=== PATIENT | male | born 1990 | race African-American/Black ===

== ENCOUNTER 2023-12-22 00:33 | Observation (INO) | payer SELFPAY ==
[2023-12-22] VITALS (58 sets, daily range): BP systolic 121–180; BP diastolic 48–127; PULSE 75–101; RESP 12–24; TEMP 36.6–36.8; O2SAT 97–100
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
[2023-12-22 01:02] LABS: Abs Immature Grans 0.04 10^3/uL (0.0-0.06); Absolute Basophil Count 0.03 10^3/uL (0.0-0.2); Absolute Eosinophil Count 0.02 10^3/uL (0.0-0.7); Absolute Lymphocyte Count 2.12 10^3/uL (1.2-3.4); Absolute Monocyte Count 0.58 10^3/uL (0.1-0.8); Absolute Neutrophil Count 6.14 10^3/uL (1.2-6.7); Basophils % 0.3 %; Eosinophils % 0.2 %; HCT 44.2 % (40.0-50.0); HGB 14.4 g/dL (13.5-17.5); Immature Grans % 0.4 %; Lymphocytes % 23.7 %; MCH 28.2 pg (27.0-33.0); MCHC 32.6 % (32.0-36.0); MCV 87 fL (80-95); MPV 9.4 fL (8.0-11.0); Monocytes % 6.5 %; Neutrophils % 68.9 %; Platelet Count 212 10^3/uL (130-400); RDW 12.5 % (11.8-14.1); RDW-SD 39.3 fL; WBC 8.93 10^3/uL (4.4-10.8)
[2023-12-22] MEDS: Normal Saline - Diluent 50 ML VIAL IJ (01:02)
[2023-12-22] MEDS: Omnipaque 350 MG/ML 100 ML BTL IJ (01:02)
[2023-12-22 01:21] LABS: ALT 43 U/L (16-63); AST 30 U/L (15-37); Albumin 3.5 g/dL (3.4-5.0); Alkaline Phosphatase 83 U/L (46-116); Amylase 55 U/L (25-115); Anion Gap 8.9 mmol/L (3-11); BUN 5 mg/dL (7-18); Bilirubin, Total 0.43 mg/dL (0.2-1.0); CO2 26.1 mmol/L (21.0-32.0); CREATININE 1.1 mg/dL (0.70-1.30); Calcium 8.4 mg/dL (8.5-10.1); Chloride 103 mmol/L (98-107); Estimated GFR 92.04 (mL/min/1.73m2); Glucose 168 mg/dL (74-106); Lipase 44 U/L (16-77); Magnesium 1.8 mg/dL (1.8-2.4); Potassium 3.2 mmol/L (3.5-5.1); Sodium 138 mmol/L (136-145); Total Protein 8.5 g/dL (6.4-8.2); Troponin I < 50 ng/L (< or =60)
[2023-12-22 01:33] LABS: ETHANOL BLOOD < 3.0 mg/dL (<10)
[2023-12-22] MEDS: Potassium Chloride Liquid 20 MEQ PKT 40 MEQ PO (02:11)
[2023-12-22] MEDS: Calcium Citrate 950 MG TAB PO (02:11)
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
[2023-12-22] MEDS: ACETAMINOPHEN 1,000 MG/100 ML BTL 400 MG IVPB (02:22)
[2023-12-22] MEDS: Ketorolac 15 MG/ML VIAL IVP ×2 (02:22→02:41)
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
[2023-12-22 02:52] LABS: Bilirubin Negative (Negative); Blood Negative (Negative); Clarity Clear (Clear); Glucose Negative (Negative); Ketones Negative (Negative); Leukocyte Esterase Negative (Negative); Nitrite Negative (Negative); Urobilinogen 0.2 mg/dL (Up to 0.2); pH 6.5 (5-8)
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
[2023-12-22 03:02] LABS: Bacteria Negative HPF (Negative); C & S Indicated? No; Casts 0-2 Fine Granular LPF (Negative); Crystals Negative HPF (Negative); Epithelial Cells Negative HPF (Negative); Mucus Negative (Negative); RBC Negative HPF (0-2); WBC Negative HPF (0-5)
[2023-12-22 03:38] LABS: Lactate 1.3 mmol/L (0.6-1.4)
[2023-12-22 06:42] LABS: Troponin I 61 ng/L (< or =60)
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
[2023-12-22] MEDS: Normal Saline Flush 10 ML SYR IVP (09:01)
[2023-12-22 11:16] LABS: Troponin I < 50 ng/L (< or =60)
--- NOTE | 2023-12-22 13:36 | PHA.REVIEW2 ---
Pharmacy Admission Review Admission Clinical Review Admission Pharmacy Review: No Known Allergies Allergy (Unverified 12/22/23 01:26) Resuscitation Status Full Code Height 5 ft 7 in Weight 136.1 kg Pharmacy Admission Review Renal Dosing Renal Dosing: BUN 5 mg/dL (7-18) L 12/22/23 00:50 Creatinine 1.1 mg/dL (0.70-1.30) 12/22/23 00:50 Medications needing adjustments: Reviewed (CrCl 129.5 mL/min) List of meds needing interventions: Current medications are okay Anticoagulation Anticoagulation: Hgb 14.4 g/dL (13.5-17.5) 12/22/23 00:50 Hct 44.2 % (40.0-50.0) 12/22/23 00:50 Plt Count 212 10^3/uL (130-400) 12/22/23 00:50 INR 1.0 (0.9-1.1) 12/22/23 00:50 Creatinine 1.1 mg/dL (0.70-1.30) 12/22/23 00:50 DVT Prophylaxis: Reviewed (None at this time) Relevant Labs Relevant Labs: Sodium 138 mmol/L (136-145) 12/22/23 00:50 Potassium 3.2 mmol/L (3.5-5.1) L 12/22/23 00:50 Chloride 103 mmol/L (98-107) 12/22/23 00:50 Magnesium 1.8 mg/dL (1.8-2.4) 12/22/23 00:50 Electrolytes, C-Reactive P, ESR: Reviewed (K 3.2 - was given 40 mEq x 1 this morning, glucose 168) Cardiac Review Cardiac Review: Troponin I < 50 ng/L (< or =60) 12/22/23 10:18 BP, HR, EF%: Reviewed (BP and HR WNL) QTc Review QTc: Reviewed (414 from 12/22/23) IV to PO Switch IV Medications: Reviewed Home Meds Home Med List reviewed: Reviewed Relevent Home Meds Not ordered & why?: No known home meds Current Meds Current Medication Order Review: Reviewed
[2023-12-22 13:50] LABS: Lab Add On Test DONE
[2023-12-22 13:55] LABS: Potassium 3.8 mmol/L (3.5-5.1)
[2023-12-22 14:45] LABS: Lab Add On Test DONE
[2023-12-22 15:11] LABS: Hemoglobin A1C 5.2 % (<5.7)
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
== END 2023-12-22 16:45 | disposition home or self-care (01) ==
LOC: ER 06:35 → MS 07:29
PROVIDERS: Internal Medicine; Admitting Provider General Practice; Emergency Provider Student in an Organized Health Care Education/Training Program; Visit Provider General Practice
DX: S20.219A Contusion of unspecified front wall of thorax, initial encounter (principal); M54.2 Cervicalgia; M54.50 Low back pain, unspecified; R73.9 Hyperglycemia, unspecified; V89.0XXA Person injured in unspecified motor-vehicle accident, nontraffic, initial encounter
CPT/HCPCS: 00123; 36415; 74177; 80053; 83690; 93005; 93308; 96365; 96375; 99285; 70450; 70486; 71260; 72125; 80320; 81003; 81015; 82150; 83036; 83605; 83735; 84132; 84484; 85025; 85610; 85730; 93010; 99234; G0378; J0131; J1885; J3490